=== PATIENT | male | born 1965 | race Caucasian/White ===

== ENCOUNTER 2016-07-30 18:12 | Inpatient (IN) | payer MEDICARE ==
[~2016-07-30] VITALS: Ht 182.9 cm; Wt 104.2 kg
[2016-07-30] VITALS (9 sets, daily range): BP systolic 156–207; BP diastolic 114–151; PULSE 62–85; RESP 15–20; O2SAT 95–99
--- NOTE | 2016-07-30 18:27 | ED.REPORT ---
HPI-Chest Pain 40 and Over Date of Service Jul 30, 2016 ED Provider: Dr. Gt Corrales D.O. A 50 year old male with a history of hypertension presents to the ED with chest pain onset approximately 15:30 today while traveling in a car. His pain is described as "heaviness," with radiation to his left arm. He also reports headache, slurring speech (per his landlord), trouble speaking, and weakness/ numbness in his left arm. The patient took Nitro x2 since onset with little relief. Nursing Notes Stated Complaint: CHEST PAIN/HIGH BLOOD PRESSURE Chief Complaint: Chest Pain Nursing Notes Reviewed: Yes Allergies: Coded Allergies: No Known Allergies (Unverified , 07/30/16) Scheduled Diltiazem ER (Dilt XR) 240 Mg Cap.er.deg 240 MG PO DAILY Scheduled PRN Alprazolam (Alprazolam) 0.5 Mg Tablet 5 MG PO BID PRN PRN For Anxiety Nitroglycerin SL (Nitrostat) 0.4 Mg Tab.subl 0.4 MG SL Q5MIN PRN PRN For Chest Pain General Time Seen by MD: 18:27 Chief Complaint Chest pain Hx Obtained From: Patient Arrived By: Walk-in Sudden in Onset?: Yes Onset Occurred: 1 - 4 hours ago Context of Onset: At rest Symptom Duration: Since onset Location: : Chest left: Chest right Quality: Heaviness Radiation: : Arm left Severity: Current: Moderate Severity: Maximum: Moderate Associated with: Reports: Numbness/Tingling (Left arm), Weakness (Left arm), Denies: Fever Pertinent Negative: Relieved by nothing Context Related History: Reports: Hypertension Recent Healthcare: No recent doctor visit Similar Sx Previous: No Risk Factors NIH Stroke Scale Level of Consciousness: Alert and responsive (0) Ask Month & Age: Both questions right (0) Open/Close Eyes/Hand 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: Performs both tasks (0) Horizontal EO Movements: None (0) Visual Tristan: No visual loss (0) Facial Palsy: Normal symmetry (0) Right Arm Motor Drift (10s): No drift 10 sec (0) Left Arm Motor Drift (10s): Drift, not touch bed (1) Right Leg Motor Drift (5s): No drift 5 sec (0) Left Leg Motor Drift (5s): No drift 5 sec (0) Limb Ataxia FNF/Heel-Barnett: Ataxia in 1 limb (1) Sensation (Arms/Legs/Face): No sensory loss (0) Language Aphasia: No aphasia, normal (0) Dysarthria: No dysarthria, normal (0) Extinction/Inattention: No exctinct/inattent (0) NIHSS Score: 2 Time NIHSS Performed: 18:37 Date NIHSS Performed: Jul 30, 2016 Level of Consciousness: Alert and responsive (0) Ask Month & Age: Both questions right (0) Open/Close Eyes/Hand 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: Performs both tasks (0) Horizontal EO Movements: None (0) Visual Tristan: No visual loss (0) Facial Palsy: Normal symmetry (0) Right Arm Motor Drift (10s): No drift 10 sec (0) Left Arm Motor Drift (10s): No drift 10 sec (0) Right Leg Motor Drift (5s): No drift 5 sec (0) Left Leg Motor Drift (5s): No drift 5 sec (0) Limb Ataxia FNF/Heel-Barnett: No ataxia (0) Sensation (Arms/Legs/Face): No sensory loss (0) Language Aphasia: No aphasia, normal (0) Dysarthria: No dysarthria, normal (0) Extinction/Inattention: No exctinct/inattent (0) NIHSS Score: 0 Time NIHSS Performed: 21:15 Date NIHSS Performed: Jul 30, 2016 Past Medical History Past Medical History Hypertension Past Surgical History Left shoulder Smoking History Never Smoker 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 Physical Exam Physical Exam Notes: Initial Vital Signs Vital Signs (First) Date Time Temp Pulse Resp B/P Pulse Ox O2 Delivery O2 Flow Rate FiO2 07/30/16 18:15 36.4 85 20 207/151 99 Room Air Initial VS: Reviewed Head / Eyes: Atraumatic, Normocephalic ENT: Conjunctiva normal, No scleral icterus Neck: Supple, Full range of motion Skin: Warm, Dry, No cyanosis Psychiatric: Mood/affect normal, Behavior normal, Normal thought content General/Constitutional: Awake, Alert Respiratory / Chest: Breath sounds NL, Breath sounds = bilat, No respiratory distress Cardiovascular: Heart rate NL, Regular rhythm, Heart sounds NL Neurologic: Oriented X3, Speech NL Left-sided arm and leg clumsiness Interpretation & Diagnostics CT ANGIO HEAD AND NECK W/ IV CONTRAST IMPRESSION: 1. No focal stenosis, occlusion, or filling defects within the central intracranial arteries. 2. Right dominant vertebrobasilar system with a diminutive left vertebral artery which appears nonopacified along most of its course. The finding suggests occlusion or high-grade stenosis which may be chronic. 3. The carotid arteries appear widely patent bilaterally. Dictated by: Madhu Garrido M.D. on 07/30/2016 at 21:04 Lab Results Interpretation Result Diagram: 07/31/16 0515 07/31/16 0130 Test 07/30/16 18:42 Hold Purple Top Tube Received (Received) Hold Blue Top Tube Received (Received) Hold [place] Top Tube Received (Received) ECG Interpretation ECG Interpretation: Sinus rhythm rate 79 LVH Prolonged SC interval Abnormal R-wave progression, early transition Some artifact No STEMI Time: 18:29 Interpreted by: ED physician ECG Interpretation: Sinus rhythm rate 60 Prolonged SC interval Left ventricular hypertrophy No serial changes from 07/30/2016 - 18:29:33 Time: 20:56 Interpreted by: ED physician X-Ray Chest Interpretation Chest Xray Interpretation: IMPRESSION: 1. Probable atelectasis in the lung bases. Dictated by: Madhu Garrido M.D. on 07/30/2016 at 19:58 View: Portable, 1 view Interpretation / Wet Read by: Interpret - Radiologist CT Head Interpretation IMPRESSION: 1. No acute intracranial abnormality. 2. Mild chronic white matter small vessel ischemic changes. Dictated by: Madhu Garrido M.D. on 07/30/2016 at 19:17 Study: Head CT no contrast Interpretation / Wet Read by: Interpret - Radiologist CT Chest Interpretation CT ANG CHEST/ABD W/WO CONTRAST: IMPRESSION: 1. No evidence of aortic dissection. 2. Small right middle lobe nodules measuring up to 3 mm. If patient is at high risk for malignancy, a followup CT may be performed in 12 months to demonstrate stability. Dictated by: Madhu Garrido M.D. on 07/30/2016 at 21:14 Interpretation / Wet Read by: Interpret - Radiologist Re-Eval/Medical Decision Med Decision/Clinical Course 50-year-old male presents with chest pain and stroke type symptoms. Evidently about 4-1/2 hours ago his landlord told him that his speech was slurred and he himself felt that his left arm was clumsy. Shortly thereafter he developed some chest pressure. It took him several hours to convince him itself to coming to the hospital. He presents now well out of the three-hour to even for an half hour time frame for thrombolytics. He does have a history of hypertension. He presents severely hypertensive. The chest pain is in his chest and seems to rate to his back. His a phasic speech/dysarthric speech has improved. He still feels a little clumsy with the left arm. No history of stroke or MO. Family history of aortic dissection. On my examination I gave him an NIH stroke scale to 1 presentation. His speech was slightly slurred. His left arm seemed to be clumsy with testing however is a difficult evaluation. The fact that he has a stasis for left shoulder. He was markedly hypertensive. EKG does not show evidence of an acute STEMI. ED scan did not show an acute stroke or hemorrhage. Due to the nature of his symptoms we are aggressive in treating his blood pressure. He received labetalol, IV nitroglycerin and IV opiates for the pain. EKG injury of his chest was negative for dissection. CT angios head and neck was negative for acute anterior circulation occlusion. As his blood pressure came down his stroke symptoms resolved. That was very reassuring. Continued to have ongoing chest pain so therefore I continued to repeat his EKGs. No dynamic changes. Nothing in the EKG that would trigger laborer cheesemaking activation. Troponins remained stable and normal. We will admit him to the CCU with hypertensive emergency. Perhaps a stroke and chest symptoms are related to the hypertensive emergency. Certainly no indications for thrombolytics or endovascular intervention. Time of Eval: 21:15 Patient Status: Condition improved Re-Evaluation/Progress Note: Patient rechecked. His chest pain persists but his other symptoms are resolving. Time of Eval: 21:32 Patient Status: Condition improved Re-Evaluation/Progress Note: Discussed with patient CT, x-ray, and lab results, diagnosis, and plan for admit. Patient agrees with plan for care and all questions were addressed. Consultation : Referral / Consult Name: Erna Altman MD Consulted With: Hospitalist Call Returned at: 22:01 Hog Worker: Agrees with eval, Agrees with plan, Accepts admit Counseled Regarding: Diagnosis, Lab results, Need for admission Discharge & Departure Primary Impression: Chest pain Chest pain type: precordial chest pain Qualified Code: R07.2 - Precordial pain Additional Impressions: TIA (transient ischemic attack) Transient cerebral ischemia type: unspecified Qualified Code: G45.9 - Transient cerebral ischemic attack, unspecified Hypertensive emergency Disposition: ADMITTED TO HOSPITAL Discharge Condition All VS Reviewed: Yes Referrals: NOPCP (PCP) Crit Care Except Billable Proc Time Spent: 30-74 minutes Services Performed: Patient management by me, Time spent at bedside, Reviewing test results, Reviewing imaging, Discussing patient care, Documentation in record Scribe Attestation Portions of this note were transcribed by Shaina Winn. I, Dr. Corrales, personally performed the history, physical exam, and medical decision-making; I reviewed and confirmed the accuracy of the information in the transcribed note. Signed by: Scott Ya, 07/30/2016, 22:24 Gt Corrales DO Jul 30, 2016 18:27 SHAINA WINN Jul 30, 2016 18:41 IMPRESSION: 1. Probable atelectasis in the lung bases. Dictated by: Madhu Garrido M.D. on 07/30/2016 at 19:58 View: Portable, 1 view Interpretation / Wet Read by: Interpret - Radiologist CT Head Interpretation IMPRESSION: 1. No acute intracranial abnormality. 2. Mild chronic white matter small vessel ischemic changes. Dictated by: Madhu Garrido M.D. on 07/30/2016 at 19:17 Study: Head CT no contrast Interpretation / Wet Read by: Interpret - Radiologist CT Chest Interpretation CT ANG CHEST/ABD W/WO CONTRAST: IMPRESSION: 1. No evidence of aortic dissection. 2. Small right middle lobe nodules measuring up to 3 mm. If patient is at high risk for malignancy, a followup CT may be performed in 12 months to demonstrate stability. Dictated by: Madhu Garrido M.D. on 07/30/2016 at 21:14 Interpretation / Wet Read by: Interpret - Radiologist Re-Eval/Medical Decision Time of Eval: 21:15 Patient Status: Condition improved Re-Evaluation/Progress Note: Patient rechecked. His chest pain persists but his other symptoms are resolving. Time of Eval: 21:32 Patient Status: Condition improved Re-Evaluation/Progress Note: Discussed with patient CT, x-ray, and lab results, diagnosis, and plan for admit. Patient agrees with plan for care and all questions were addressed. Consultation : Referral / Consult Name: Erna Altman MD Consulted With: Hospitalist Call Returned at: 22:01 Hog Worker: Agrees with eval, Agrees with plan, Accepts admit Counseled Regarding: Diagnosis, Lab results, Need for admission Discharge & Departure Primary Impression: Chest pain Chest pain type: precordial chest pain Qualified Code: R07.2 - Precordial pain Additional Impressions: TIA (transient ischemic attack) Transient cerebral ischemia type: unspecified Qualified Code: G45.9 - Transient cerebral ischemic attack, unspecified Hypertensive emergency Disposition: ADMITTED TO HOSPITAL Discharge Condition All VS Reviewed: Yes Referrals: NOPCP (PCP) Crit Care Except Billable Proc Time Spent: 30-74 minutes Services Performed: Patient management by me, Time spent at bedside, Reviewing test results, Reviewing imaging, Discussing patient care, Documentation in record Scribe Attestation Portions of this note were transcribed by Shaina Winn. I, Dr. Corrales, personally performed the history, physical exam, and medical decision-making; I reviewed and confirmed the accuracy of the information in the transcribed note. Signed by: Scott Ya, 07/30/2016, 22:24 Gt Corrales DO Jul 30, 2016 18:27 SHAINA WINN Jul 30, 2016 18:41
[2016-07-30] MEDS ORDERED: Nitroglycerin 2% 1 Gm Ointment TOPICAL ONE (18:30)
[2016-07-30] MEDS ORDERED: Labetalol 5 mg/mL 4 mL Inj IVPUSH ONE (18:30)
[2016-07-30] MEDS: fentaNYL-PF 50 mCg/mL 2 mL Inj IVPUSH PRN ×2 (18:49→20:01)
[2016-07-30 19:05] LABS: BASOPHILS % (AUTO) 0.6 % (0-3); EOSINOPHILS % (AUTO) 1.4 % (0-5); MONOCYTES % (AUTO) 6.6 % (4-12); Mean Corpuscular Hemoglobin 31.9 pg (27.0-35.0); Mean Corpuscular Volume 92.9 fL (81-100); NEUTROPHILS % (AUTO) 45.5 % (40-74); Platelet Count 258 bil/L (150-400)
--- NOTE | 2016-07-30 19:18 | DRSVH ---
PROCEDURE: CT BRAIN WITHOUT CONTRAST ([id number]) INDICATIONS: slurred speech TECHNIQUE: Noncontrast 4.5 mm thick angled axial sections acquired from the foramen magnum to the vertex, with c oronal reformats. COMPARISON: [facility], CT, HEAD WITHOUT CONTRAST, 01/04/2015, 11:33. FINDINGS: Image quality: Excellent. CSF spaces: Basal cisterns are patent. No extra-axial fluid collections. Ventricles are normal in size and shape. Brain: No intracranial hemorrhage, mass, or mass effect. Roldan-white matter interface is preserved. There is mild periventricular white matter hypoattenuation redemonstrated consistent with mild chron ic small vessel ischemic changes. Skull and face: Calvarium and visualized facial bones are intact, without suspicious lesions. Sinuses: Visualized sinuses and mastoids are clear. IMPRESSION: 1. No acute intracranial abnormality. 2. Mild chronic white matter small vessel ischemic changes. Dictated by: Madhu Garrido M.D. on 07/30/2016 at 19:17 Approved by: Madhu Garrido M.D. on 07/30/2016 at 19:17
[2016-07-30] MEDS ORDERED: Nitroglycerin 50 mg/250 mL D5W 50,000 MCG in IV Premix 1 EACH IV SCH (19:25)
[2016-07-30 19:30] LABS: Magnesium 1.9 mg/dL (1.6-2.6)
[2016-07-30 19:34] LABS: TROPONIN T < 0.010 ug/L (0.0-0.011)
[2016-07-30] MEDS ORDERED: 0.9% Sodium Chloride 1,000 ML IV ONE (19:40)
--- NOTE | 2016-07-30 19:59 | DRSVH ---
PROCEDURE: X-RAY CHEST ONE VIEW, PORTABLE ([id number]) INDICATIONS: CHEST PAIN TECHNIQUE: One view of the chest was acquired. COMPARISON: [facility], , CHEST 1 VIEW, 01/04/2015, 11:41. FINDINGS: Surgical changes and devices: There is a left shoulder prosthesis redemonstrated. Lungs and pleura: No pleural effusions or pneumothorax. There are a few linear bibasilar opacities likely representing atelectasis. Mediastinum: Mediastinal contours appear normal. Heart size is normal. Bones and chest wall: No suspicious bony lesions. Overlying soft tissues appear unremarkable. IMPRESSION: 1. Probable atelectasis in the lung bases. Dictated by: Madhu Garrido M.D. on 07/30/2016 at 19:58 Approved by: Madhu Garrido M.D. on 07/30/2016 at 19:58
[2016-07-30] MEDS: HYDROmorphone 0.5 mg/0.5 mL iSecure Syringe IVPUSH PRN ×2 (20:53→23:20)
--- NOTE | 2016-07-30 21:05 | DRSVH ---
PROCEDURE: CT ANGIO HEAD AND NECK (P) INDICATIONS: slurred speech, chest pain, hypertensive TECHNIQUE: After the administration of intravenous contrast, 1 mm thick sections acquired from the aortic arch t hrough the [place] of [place]. Post-contrast 4.5 mm thick sections then re-acquired from the foramen m agnum to the vertex. 3-dimensional ffuincs-pmrtcaasw-efdktmokif (MIP) and/or volume rendering reform ats were acquired of the central intracranial vasculature and neck separately. For radiation dose re duction, the following was used: automated exposure control, adjustment of mA and/or kV according to patient size. COMPARISON: [facility], CT, CT BRAIN WO CON, 07/30/2016, 19:01. FINDINGS: Image quality: There is streak artifact from injected contrast limiting evaluation. BRAIN: CSF spaces: Basal cisterns are patent. No extra-axial fluid collections. Ventricles are normal in size and shape. Brain: No intracranial hematomas, mass, or mass effect. Roldan-white matter interface is preserved. Skull and face: Calvarium and facial bones appear intact, without suspicious lesions. Orbits appear normal. Sinuses: Sinuses and mastoids are clear. HEAD CT ANGIOGRAPHY: Anterior circulation: Intracranial internal carotid arteries are normal in size and flow. The flow within the paired anterior cerebral arteries is patent bilaterally. The flow within the middle cereb ral arteries is patent bilaterally. The anterior communicating artery is seen. No aneurysms are see n. Posterior circulation: There is a right dominant vertebral artery which primarily supplies the basil ar artery. There is a diminutive distal left vertebral artery which is minimally opacified. Flow wi thin the posterior cerebral arteries is patent bilaterally. No aneurysms are seen. NECK CT ANGIOGRAPHY: Carotid system: The great vessels demonstrate conventional anatomy as they arise from the aortic arc h. The origins of the common carotid arteries appear patent. The common carotid arteries demonstrat e normal caliber and courses. The bifurcation regions are both widely patent. The internal carotid arteries demonstrate normal calibers and courses. Posterior circulation: There is a right dominant vertebral basilar system. The proximal left vertebr al artery is not well evaluated at its origin due to extensive streak artifact from injected contrast . However, there is a diminutive left vertebral artery which appears non-opacified for most of its c ourse. Distally, there is minimal luminal opacification prior to its fusion with the dominant right vertebral artery. The basilar artery appears widely patent. Soft tissues: Visualized neck soft tissues demonstrate no suspicious abnormalities. Bones: No suspicious bony lesions. Visualized cervical spine appears normally aligned. IMPRESSION: 1. No focal stenosis, occlusion, or filling defects within the central intracranial arteries. 2. Right dominant vertebrobasilar system with a diminutive left vertebral artery which appears nonop acified along most of its course. The finding suggests occlusion or high-grade stenosis which may be chronic. 3. The carotid arteries appear widely patent bilaterally. Dictated by: Madhu Garrido M.D. on 07/30/2016 at 21:04 Approved by: Madhu Garrido M.D. on 07/30/2016 at 21:04
--- NOTE | 2016-07-30 21:16 | DRSVH ---
PROCEDURE: CT ANG CHEST/ABD W/WO CONTRAST ([id number]) INDICATIONS: CHEST PAIN. RULE OUT DISSECTION TECHNIQUE: Precontrast 5 mm thick sections acquired from the lung apices to the iliac crests. After the adminis tration of intravenous contrast, 3 mm thick sections again acquired from the lung apices to the iliac crests. 3-dimensional maximum intensity projection (MIP) oblique sagittal and coronal reformats wer e then acquired, and/or 3-dimensional volume rendering reformats. For radiation dose reduction, the following was used: automated exposure control. COMPARISON: None. FINDINGS: Image quality: Excellent. AORTA: The aorta is normal in caliber and contour. No evidence of intramural hematomas on noncontra st images. Postcontrast images demonstrate no intimal flaps to suggest aortic dissection. There is conventional branching of the aortic arch. The visualized great vessels appear patent. The celiac, superior mesenteric, and inferior mesenteric arteries appear patent. There are single renal arteries bilaterally which appear patent. The visualized proximal common iliac arteries are normal in calibe r and appear patent. CHEST: Lungs and pleura: There is mild dependent atelectasis. There is a small 3 mm pulmonary nodule in the right middle lobe on series 4 image 60. A small 2-3 mm nodule is also demonstrated in the right mid dle lobe on image 67. A few subpleural nodular opacities in the posterior lower lobes are likely rel ated to atelectasis. No pleural effusions or pneumothorax. Central and peripheral airways are paten t and normal in caliber. Mediastinum: Heart size is normal. No pericardial effusion. There is coronary arterial vascular ca lcification. No mediastinal or hilar adenopathy by size criteria. Central pulmonary arteries are no rmal in size. Esophagus is normal in caliber. No hiatal hernias. Bones and chest wall: No axillary adenopathy by size criteria. Thyroid gland demonstrates no discre te nodules. No suspicious bony lesions. No vertebral body compression fractures. ABDOMEN: Solid organs: Liver and spleen are normal in size. Gallbladder appears within normal limits. Bilia ry system is non dilated. Pancreas enhances normally. No adrenal nodules. Both kidneys are normal in size and enhancement, without hydronephrosis. Peritoneum and bowel: No free fluid or air. Visualized bowel loops are normal in caliber and wall t hickness. Nodes and vessels: No retroperitoneal or mesenteric adenopathy by size criteria. Inferior vena cava is normal in morphology. Bones: No suspicious bony lesions. No vertebral body compression fractures. Miscellaneous: No ventral hernias. IMPRESSION: 1. No evidence of aortic dissection. 2. Small right middle lobe nodules measuring up to 3 mm. If patient is at high risk for malignancy, a followup CT may be performed in 12 months to demonstrate stability. Dictated by: Madhu Garrido M.D. on 07/30/2016 at 21:14 Approved by: Madhu Garrido M.D. on 07/30/2016 at 21:14
[2016-07-30] MEDS ORDERED: Alum-Mag Hydrox-Simeth 30 mL Suspension PO PRN (22:35)
[2016-07-30] MEDS ORDERED: Ondansetron 2 mg/mL 2 mL Inj IVPUSH PRN (22:35)
[2016-07-30] MEDS ORDERED: DILT240C45 PO (23:22)
[2016-07-30 23:46] LABS: APPEARANCE,URINE CLEAR (CLEAR,HAZY); COLOR,URINE YELLOW (YELLOW); OCCULT BLOOD,URINE NEGATIVE (NEGATIVE); PH,URINE 5.5 (5.0-8.0); UROBILINOGEN,URINE NORMAL (NORMAL)
[2016-07-31] VITALS (8 sets, daily range): BP systolic 141–159; BP diastolic 77–100; PULSE 53–95; RESP 12–19; O2SAT 92–98
[2016-07-31] MEDS ORDERED: Alum-Mag Hydrox-Simeth 30 mL Suspension PO PRN (00:20)
[2016-07-31] MEDS ORDERED: Senna-Docusate 8.6-50 mg Tablet PO PRN (00:20)
[2016-07-31] MEDS ORDERED: Polyethylene Glycol (PEG) 17 Gm Powder PO PRN (00:20)
[2016-07-31] MEDS ORDERED: HYDROmorphone 0.5 mg/0.5 mL iSecure Syringe IVPUSH PRN (00:20)
--- NOTE | 2016-07-31 00:59 | PCM.HPMED ---
Subjective Date of Service Jul 30, 2016 Primary Provider: Admitting Physician: Erna Altman MD Primary Care Physician: N[place]dim[place] Attending Physician: Erna Altman MD Chief Complaint: Left arm weakness and chest pain History of Present Illness: A 50 year old male with scant medical history of hypertension presents to the ED with 10/10 left sided chest pain/pressure and left arm weakness/numbness that began around 15:30 today while in his car, with SBP > 230 on admit. Pt describes his pain as "heaviness," with radiation down his left arm, with additional weakness and numbness. He also reports headache, slurring speech which is resolving, mild aphasia that has now resolved, and weakness/numbness in his left arm and leg. Endorses blurry vision, pain in back, dizziness, lightheadedness, nausea, and confusion/ams which has now resolved. Denies fever , chills, or vomiting. The patient took Nitro x2 since onset with little relief. In the ED the patient was given labetalol with decreased of SBP from 207 to 181. Pt was then placed on a nitro drip with SBP continuing to drop to 150-170' s. CT scans of chest/abd and brain were obtained and unremarkable, along with CT head and neck with brain perfusion which was negative for acute vascular compromise. Pt's symptoms began remitting on the lowering of his BP with reduced CP with use of nitro drip. His left arm weakness is resolving. Currently patient complains of headache. Review of Systems: A comprehensive review of systems was conducted with the patient and found to be negative except as above in the History of Present Illness. Allergies Coded Allergies: No Known Allergies (Unverified , 07/30/16) Home Medications Diltiazem 240mg daily Ibuprofen 800mg TID for extended period of time PMH Hypertension Surgical History Left shoulder Family History Pt is adopted Social History Hx Alcohol Use: Yes (increased drinking currently due to life stressors) Hx Substance Use: Yes (marijuana) Hx Tobacco Use: Yes Smoking Status: Light Tobacco Smoker (socially, not consistent; does smoke marijuana), Never Smoker Living Arrangement: with Family Exam Vital Signs Vital Sign - Last Date Time Temp Pulse Resp B/P Pulse Ox O2 Delivery O2 Flow Rate FiO2 07/30/16 22:30 65 173/122 07/30/16 19:20 15 95 Room Air 07/30/16 18:15 36.4 Exam Gen: AOx3, conversive; upbeat HEENT: mild slurring of speech that partner states is around baseline and improved from ED: PERRLA, EOMI, hearing intact with mild decrease on left side; Cardio: RRR no m/r/g; Resp: CTA bilaterally with decreased breath sounds but no w/r/c Abd: non-tender; +bs; non-distended; central obesity Ext: no edema noted; no rashes; peripheral IV in bilateral cubital fossa muscu: no chest tenderness to palpation psych: appropriate mood and affect neuro: CN 2-12 grossly intact except as noted; mild slurring of words; oriented now but states he was not when the episode started at 1330 yesterday; no dysmetria; finger to nose intact; [id number] revealed mild myoclonus with left heal on right reza, otherwise normal; sensation intact on right, but decreased on left hand and foot; 5/5 strength on right but 3+/5 on leg leg and 3 or 3-/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 No focal stenosis, occlusion, or filling defects within the central intracranial arteries. 2. Right dominant vertebrobasilar system with a diminutive left vertebral artery which appears nonopacified along most of its course. The finding suggests occlusion or high-grade stenosis which may be chronic. 3. The carotid arteries appear widely patent bilaterally. Dictated by: Madhu Garrido M.D. on 07/30/2016 at 21:[address] 1. No acute intracranial abnormality. 2. Mild chronic white matter small vessel ischemic changes. Dictated by: Madhu Garrido M.D. on 07/30/2016 at 19:17 Chest X-ray 1. Probable atelectasis in the lung bases. Dictated by: Madhu Garrido M.D. on 07/30/2016 at 19:58 Chest/Abdomen CT 1. No evidence of aortic dissection. 2. Small right middle lobe nodules measuring up to 3 mm. If patient is at high risk for malignancy, a followup CT may be performed in 12 months to demonstrate stability. Dictated by: Madhu Garrido M.D. on 07/30/2016 at 21:14 Assessment & Plan Hypertensive Emergency with chest pain, left sided weakness with slurred speech , and ams; present on admission; ongoing - Has significantly uncontrolled BP with outpatient SBP of 170 being low for the patient - Pt presents with severe chest pain that is mild-mod minimally relieved with nitro, and neurological symptoms, with initial SBP > 220 - Pt given Labetalol 20mg IV which brought SBP down 25%; placed on nitro drip for maintenance and for tx of chest pain - Pt admitted to ICU on nitro drip; will switch to nicardipine or enalapril if insufficient (would rather use labetalol but HR in 60's) - Consider starting PO in am - Goal to drop BP another 10% from noon today (07/31) until noon tomorrow; already down 20-25% - Pt on Dilaudid to control contributions of pain on his blood pressure - ECHO in am due to > decade of extreme uncontrolled hypertension and reports of increasing exercise intolerance - Pt BP goal: 180> BP >170 Chest pain second to hypertension; present on admission; ongoing - Likely chest pain is second to hypertension with some resolution after initiation of antihypertensives - Still at 8/10, but negative EKG changes and troponin neg x 2 - Continue nitro drip - Start B-percy in AM but keep within parameters - Trend troponin - Lipid panel pending - Discussed need to control drinking and stop smoking - EKG in am - Pt does complain of headache that is now worse, likely due to nitro; already given Dilaudid in ED; will continue for present with recognition that this may lead to rebound; stop once Nitro stopped Concern for stroke vs TIA second to malignant htn; present on admission; ongoing - Pt states had ams and worsening left arm and leg weakness; appears that at least some of this weakness exists at baseline, but it was significant weakness on exam, improved from ED; NIH on admit 6 - CTA negative for acute embolic or atherosclerotic disease and carotids without identifiable plaque; no bleed - Contrast MR tomorrow; did not do stroke protocol as CTA head and neck completed already - Starting on atorvastatin and asa - Neuro check per nursing Hx of atrial fibrillation; stable - Pt has hx of atrial fibrillation and placed on Diltiazem 240 daily for rate and BP control - Likely patient missed dose today - Pt currently NSR - Considering B-percy for blood pressure control and to replace Diltiazem on discharge Hyperglycemia of unknown chronicity; present on admission - Pt BG 141 on admit - No hx of diabetes; - A1c in AM GERD second to alcohol and extensive NSAID use; resent on admission; ongoing - Pt has had increased alcohol intake recently and using Ibuprofen 800mg Q8 for extended period - Famotidine 20 PO Q12 - Discussed need to control factors Dispo: Pt is being admitted to ICU with expected LOS > 2 midnights due to severity of presentation, complexity of case, and risk for complications Pain Evaluation: Pain not Controlled GI Prophylaxis: H2 percy VTE Prophylaxis: Sub-Q Heparin (Unfractionated) Resuscitation Status: CPR: Attempt Resuscitation Attending Statement Pt seen and examined by myself and agree with above plan. Karan Wong DO Jul 31, 2016 00:58 Erna Altman MD Aug 03, 2016 06:28
[2016-07-31] MEDS: Ondansetron 2 mg/mL 2 mL Inj IVPUSH PRN ×2 (01:09→09:04)
[2016-07-31] MEDS ORDERED: NiCARdipine Inj 25 MG in Dextrose 5% 240 ML IV SCH (01:25)
[2016-07-31] MEDS ORDERED: Furosemide 10 mg/mL 4 mL Inj IVPUSH ONE (02:00)
[2016-07-31 02:19] LABS: TROPONIN T 0.01 ug/L (0.0-0.011)
[2016-07-31] MEDS: NiCARdipine Inj 25 MG in Dextrose 5% 240 ML IV SCH ×5 (02:30→21:45)
[2016-07-31] MEDS ORDERED: LidocaineVisc 2%:Antacid 1:1 120 mL Suspension PO ONE (04:00)
[2016-07-31 05:29] LABS: BASOPHILS % (AUTO) 0.6 % (0-3); EOSINOPHILS % (AUTO) 1.3 % (0-5); MONOCYTES % (AUTO) 8.1 % (4-12); Mean Corpuscular Hemoglobin 31.6 pg (27.0-35.0); Mean Corpuscular Volume 92.1 fL (81-100); NEUTROPHILS % (AUTO) 61.5 % (40-74); Platelet Count 232 bil/L (150-400)
--- NOTE | 2016-07-31 07:29 | NUR ---
CCU admit / Cardiac Pt arrived from ER to CCU # 2018 approx at 2250. BP elevated. Pt C/O CP and ALVAREZ. Pt treated for pain. Nitro titrated up. Pt could not tolerate Nitro gtt. Pt C/O "raging ALVAREZ 04/28". ALVAREZ associated with CP, nausea, diaphoresis, and severe anxiety. Dr. Altman at the bedside to assess pt and reviewed 12 leads and VS. Received new order to D/C Nitro gtt and start Nicardipine gtt per CCU protocol. Drip initiated. BP improved and pt stated I feel much better refer to CP and ALVAREZ. Pt appeared calm and pleasant. Dr. Wong order to held Nicardipine gtt at this time to maintain BP >150 and < 170. No overt complications noted. (please refer to CCU flowsheet, VS, intervention, EMAR for further details)
--- NOTE | 2016-07-31 08:53 | PCM.PNMED ---
Subjective Date of Service Jul 31, 2016 Subjective 50 year man with poorly-controlled hypertension presents with left-sided neurologic complaints and chest pain; found to have hypertensive emergency. Neurologic symptoms have resolved. Her complaint is severe headache since admission, attributed to nitroglycerin. No further chest pain at this time. He does endorse history of stable angina with exertion for which he has a standing prescription of nitroglycerin, which she has taken on 2 or 3 occasions. His current complaints began after a conversation in which her friend raised concerns about slurred speech. The patient checked his blood pressure found it to be very high. He experienced some anxiety along with neuro and chest complaints. Exam Vital Signs Vital Sign - Last Date Time Temp Pulse Resp B/P Pulse Ox O2 Delivery O2 Flow Rate FiO2 07/31/16 08:11 36.7 65 12 144/77 98 Room Air Intake and Output 07/30/16 07/30/16 07/31/16 Cumulative From/Thru 15:00 23:00 07:00 07/30/16 18:15 - 07/31/16 06:45 Intake Total 1000 ml 389 ml 1389 ml Output Total 3375 ml 3375 ml Balance 1000 ml -2986 ml -1986 ml Intake Oral 150 ml 150 ml IV Total 1000 ml 239 ml 1239 ml Output Urine Total 3375 ml 3375 ml Exam General: Healthy-appearing middle-aged man no acute distress HEENT: sclerae anicteric, oral mucosa moist Neck: no JVD Chest: clear to auscultation Cardiac: S1S2, no murmur Abdomen: BS normal, non-tender Extremities: No edema, pulses intact Neuro: A&O, cranial nerves symmetric, motor strength 5/5, coordination normal, reflexes 2+ and symmetric, toes downgoing IVs and Medications Medications Reviewed: Medications were reviewed in detail Lab and Diagnostics Result Diagram: 07/31/16 0515 07/31/16 0130 X-Rays, CTs and MRIs Head and Neck CTA 1. No focal stenosis, occlusion, or filling defects within the central intracranial arteries. 2. Right dominant vertebrobasilar system with a diminutive left vertebral artery which appears nonopacified along most of its course. The finding suggests occlusion or high-grade stenosis which may be chronic. 3. The carotid arteries appear widely patent bilaterally. Dictated by: Madhu Garrido M.D. on 07/30/2016 at 21:[address] 1. No acute intracranial abnormality. 2. Mild chronic white matter small vessel ischemic changes. Dictated by: Madhu Garrido M.D. on 07/30/2016 at 19:17 Chest X-ray 1. Probable atelectasis in the lung bases. Dictated by: Madhu Garrido M.D. on 07/30/2016 at 19:58 Chest/Abdomen CT 1. No evidence of aortic dissection. 2. Small right middle lobe nodules measuring up to 3 mm. If patient is at high risk for malignancy, a followup CT may be performed in 12 months to demonstrate stability. Dictated by: Madhu Garrido M.D. on 07/30/2016 at 21:14 Assessment & Plan # Hypertensive Emergency with chest pain, left sided weakness with slurred speech, and ams; present on admission.. Pt given Labetalol 20mg IV which brought SBP down 25%; placed on nitro drip for maintenance and for tx of chest pain. Pt admitted to ICU,, nicardipine or enalapril as needed. - Resume diltiazem ER today and taper off nicardipine for SBP less than 160. - Goal to drop BP another 10% from noon today (07/31) until noon tomorrow; already down 20-25% - Goal is to transition to by mouth meds with systolic blood pressure 160-180 today # Chest pain second to hypertension; present on admission; resolved. Likely chest pain is second to hypertension with some resolution after initiation of antihypertensives. Troponins negative. EKG negative. - We will consider switch to beta percy, but patient has had intolerance to several antihypertensives meds in the past. - No further ischemic workup at this time. #Concern for stroke vs TIA second to malignant htn; present on admission; resolved. Pt states had ams and worsening left arm and leg weakness; appears that at least some of this weakness exists at baseline, but it was significant weakness on exam at time of admission. Neuro exam is normal within 24 hours. CTA negative for acute embolic or atherosclerotic disease and carotids without identifiable plaque; no bleed. - Contrast MR tomorrow; did not do stroke protocol as CTA head and neck completed already - Starting on atorvastatin and asa - Neuro check per nursing # Hx of atrial fibrillation; stable. Pt has hx of atrial fibrillation and placed on Diltiazem 240 daily for rate and BP control. Pt currently NSR -Resume diltiazem # Hyperglycemia of unknown chronicity; present on admission - Pt BG 141 on admit - No hx of diabetes; - A1c in AM # GERD second to alcohol and extensive NSAID use; resent on admission; ongoing - Pt has had increased alcohol intake recently and using Ibuprofen 800mg Q8 for extended period - Famotidine 20 PO Q12 - Discussed need to control factors Dispo: Pt is being admitted to ICU with expected discharge on 08/01. Okay to transfer out of CCU when nicardipine drip is discontinued. GI Prophylaxis: H2 percy VTE Prophylaxis: Sub-Q Heparin (Unfractionated) Resuscitation Status: CPR: Attempt Resuscitation Time spent 35 minutes Guzman Ford MD Jul 31, 2016 08:53
[2016-07-31] MEDS ORDERED: HYDROmorphone 0.5 mg/0.5 mL iSecure Syringe IVPUSH ONE (09:30)
--- NOTE | 2016-07-31 09:45 | NUR ---
Evaluation completed. Please go to "Notes" then click on "Assessments and Notes" (bottom left corner of screen). Then select appropriate discipline tab on top of screen.
[2016-07-31] MEDS: Diltiazem CD 240 mg ER24 Capsule PO SCH (10:03)
[2016-07-31] MEDS: Heparin 5,000 Unit/mL Inj SUBQ SCH ×2 (10:05→17:24)
--- NOTE | 2016-07-31 10:26 | DRSVH ---
[facility] [address] [place] [address] Echocardiogram Report Name: LASHONDA NUNEZ SStudy Date: 07/31/2016 Height: 72 in Hospital Exam Location: [facility] Weight: 234 lb Gender: Male BSA: 2.3 m2 : 1965 Age: 50 yrs BP: 159/91 mmHg Reason For Study: Ordering Physician: Performed By: Roberta Jerome Interpretation Summary 1. Normal left ventricular size with mild to moderately increased wall thickness and normal systolic function with an estimated EF of 60% 2. Upper limits of normal right ventricular size with normal systolic function. 3. No valvular pathology appreciated. 4. The ascending aorta is dilated at 4.1 cm Procedure: A two-dimensional transthoracic echocardiogram with color flow and Doppler was performed. The study quality was technically adequate. There is no prior echocardiogram noted for this patient. The patient was in a bradycardic rhythm during the exam. Left Ventricle: The left ventricle is normal in size. Left ventricular wall thickness is mild-moderately increased. Left ventricular systolic function is normal. Left ventricular ejection fraction is estimated to be 60%. Spectral Doppler of the mitral valve is reversed, with an E/A wave ratio < 1.0. Right Ventricle: The right ventricle is borderline dilated. The right ventricular systolic function is normal. Atria: The left atrium is mildly dilated. Right atrial size is normal. No color doppler evidence for an ASD. Mitral Valve: The mitral valve is normal in structure and function. There is no mitral regurgitation noted. Aortic Valve: The aortic valve is trileaflet. The aortic valve opens well. No aortic regurgitation is present. Tricuspid Valve: The tricuspid valve leaflets are thin and pliable. There is a trace or physiologic amount of tricuspid regurgitation. The right ventricular systolic pressure is estimated at 23 mmHg assuming a right atrial pressure of 3 mm Hg. Pulmonic Valve: The pulmonic valve leaflets are thin and pliable; valve motion is normal. There is no pulmonic valvular regurgitation. Great Vessels: The aortic root is mildly dilated. The ascending aorta is mildly enlarged. The ascending aorta measures 4.1 cm. The pulmonary artery is normal size. The IVC is of normal diameter and collapses greater than 50% with a sniff. This suggests a low right atrial pressure of 3 mm Hg. Pericardium/ Pleura There is no pericardial effusion. There is no pleural effusion. MMode/2D Measurements & Calculations LVIDd: 5.5 cm LA dimension: 5.0 cm RA long axis LVOT diam: 2.6 cm LVIDs: 3.1 cm AoV Openin.4 cm FS: 43.8 % LA A2 area: 25.1 cm RA area Ao root diam: 4.0 cm EPSS: 0.98 cm LA A4 area: 25.3 cm asc Aorta Diam IVSd: 1.5 cm LA length (vol) : 20.2 cm LVPWd: 1.3 cm RA vol Ao Arch Diam LA vol: 89.9 ml : 57.7 ml (Proximal trans.) LA vol index RA : 25.4 mm/ RVDd major IVC diam: 1.4 cm : 6.6 cm LV rivera. diameter/BSALV sys. diameter/BSA RVD2 (mid) (cm/m^2): 2.4 (cm/m^2): 1.4 : 3.6 cm Doppler Measurements & Calculations Ao V2 max: 162.5 cm/sec MV E max arnie MV E/A: 0.86 TR max arnie Ao max P.6 mmHg : 66.6 cm/sec MV A dur : 218.0 cm/sec Ao mean P.2 mmHg MV A max arnie : 0.15 sec TR max PG LVOT Max Arnie : 77.9 cm/sec : 20.0 mmHg : 107.3 cm/sec MV P1/2t PA V2 max BRIAN(I,D): 3.6 cm : 87.5 msec : 103.5 cm/sec sev ratio: 0.69 PA mean PG PA Accel Time : 0.10 sec MV P1/2t max arnie Ao V2 mean LV V1 max PG PA V2 mean : 109.2 cm/sec : 72.1 cm/sec MVA(P1/2t): 2.5 cm2 Ao V2 VTI: 33.9 cm LV V1 VTI BRIAN(V,D): 3.4 cm2 : 23.3 cm BRIAN indexed to BSA (cm^2/m^2): 1.6 Reading Physician:10:25 AM
--- NOTE | 2016-07-31 14:16 | DRSVH ---
PROCEDURE: MRI BRAIN WITHOUT CONTRAST ([id number]) INDICATIONS: left sided weakness TECHNIQUE: Noncontrast axial T1 spin echo, axial T2 fast spin echo, sagittal and axial FLAIR, coronal T2 fast sp in echo, axial gradient echo, axial diffusion and ADC through the brain. COMPARISON: [facility], CT, CT BRAIN WO CON, 07/30/2016, 19:01. FINDINGS: Image quality: Excellent. CSF Spaces: Basal cisterns are patent. No extra-axial fluid collections. Ventricles are normal in size and shape. Brain: No intracranial masses or hemorrhage. There is mild diffuse cerebral volume loss. There is a mild degree of patchy high FLAIR signal within the periventricular and subcortical white matter, most consistent with small vessel ischemic disease. Roldan/white matter interface is normal. Brainstem dominik ears normal. Diffusion-weighted images demonstrate no acute ischemic insult. No chronic ischemic in sults. Normal intravascular flow voids are present. Skull and face: Calvarium has normal marrow signal. Orbits appear normal. Sinuses: Mild bilateral ethmoid air cell mucosal thickening is present. Sinuses and mastoids are othe rwise clear. IMPRESSION: 1. No acute intracanal abnormality. No recent infarct. 2. Mild volume loss and small vessel ischemic disease. Dictated by: Chun Jarvis M.D. on 07/31/2016 at 14:14 Approved by: Chun Jarvis M.D. on 07/31/2016 at 14:14
--- NOTE | 2016-07-31 15:26 | NUR ---
Cardiac/neuro/pain SR/SB with inverted t-waves per compliance monitor. Hypertensive, but remains within set parameters at this time. Chest pressure unchanged throughout shift, patient continues to rate 5/10. Denies SOA. Right frontal ALVAREZ persists; however, pain improved from start of shift. Patient reporting "heaviness" and "weakness" in left upper and lower extremities. Full strength noted in upper extremities. Pt able to hold left leg up to 5 seconds, but then it drifts and falls to bed. Additional reports of decreased sensation in left arm. Speech clear and organized. Dr Ford contacted and updated on pt status, no new orders at this time. Will continue to monitor.
[2016-07-31] MEDS ORDERED: NITR0.4T SL (17:38)
[2016-07-31] MEDS ORDERED: ALPR0.5T8 PO (17:38)
--- NOTE | 2016-07-31 17:43 | NUR ---
Med rec. Pt. became agitated when asked about hx of taking Viagra, states doctors do not need to know about his hx of taking this and asks me to leave the room. Pt. also has documented hx of taking nitroglycerin. I left the room as asked and have reported this issue to primary RN Grazyna. Addendum: 07/31/16 at 1928 by FLORINDA BARNARD RN After introducing myself as admit nurse and my purpose of reconciling pt. home meds I began reviewing pt. home meds with him. There was a female visitor in the room during this interaction. Pt. affirmed several medications I reviewed from pharmacy history in external med. history. After I mentioned cialis and viagra pt. became angry, saying the doctors don't need to know that he takes that and that "she" does not need to know either. I apologized to pt. for asking about this personal medication in front of her. Visitor walked to the doorway and asked pt. to "calm down, I already knew anyway, they've been talking about your history and physical the whole time I've been here." Visitor left and I apologized again. Pt. was angry, berating me for unprofessionalism. "I don't have anything more to say to you." I explained my concern that the doctors know all the medications he takes including both nitroglycerin and viagra, for the safety of his heart but pt. again stated "the doctors don't need to know." I did not enter Viagra in home med list per pt. stated preference. I then left pt.'s room.
[2016-08-01 00:11] VITALS: BP 157/96; PULSE 59; RESP 19; O2SAT 96
[2016-08-01] MEDS: Heparin 5,000 Unit/mL Inj SUBQ SCH ×2 (00:14→08:30)
[2016-08-01] MEDS: NiCARdipine Inj 25 MG in Dextrose 5% 240 ML IV SCH ×2 (02:45→07:45)
[2016-08-01 03:11] VITALS: BP 149/85; PULSE 60; RESP 16; O2SAT 95
[2016-08-01 05:19] VITALS: PULSE 47
--- NOTE | 2016-08-01 06:14 | NUR ---
sleep pt requesting medications to help him sleep, very anxious about sleeping. gave 1mg IV ativan, 1.5 hours later pt called c/o he is still unable to sleep, called received order for 5mg PO ambien, a few hours later pt still c/o of no sleep, gave another dose of 1mg IV ativan, pt able to fall asleep. BP stable,
[2016-08-01 08:00] VITALS: PULSE 51
[2016-08-01 08:42] VITALS: BP 126/85; PULSE 50; RESP 18; O2SAT 96
[2016-08-01] MEDS: Diltiazem CD 240 mg ER24 Capsule PO SCH (08:48)
[2016-08-01] MEDS ORDERED: ASPI-973 PO (09:05)
[2016-08-01] MEDS ORDERED: NAPR250T PO (09:05)
[2016-08-01] MEDS ORDERED: LISI-610 PO (09:05)
[2016-08-01] MEDS ORDERED: ATOR40TA69 PO (09:05)
--- NOTE | 2016-08-01 09:10 | PCM.DIMED ---
Discharge Instructions Date of Service Aug 01, 2016 Dates of Hospitalization Jul 30, 2016 at 22:02 Discharge Diagnosis Discharge Diagnosis Hypertensive emergency; TIA symptoms; noncardiac chest pain; anxiety Test Results Total cholesterol 176, LDL cholesterol 89, HDL cholesterol 55 Hemoglobin A1c 5.2% Diet Other (low sodium otherwise normal diet) Activity No restrictions Patient Instructions You should take low-dose aspirin once a day. He may continue your current over- the-counter aspirin preparation or make use of the prescription for low-dose baby aspirin has been provided. You should try to minimize the use of pain medications for your chronic musculoskeletal complaints. These medications increase your risk for heart attack and stroke. Naproxen is probably the safest drug in this class from a heart health perspective. All medications like status post risk of ulcer. You should be aware of tarry black colored stools or maroon-colored stools as a sign of GI bleeding and go to the emergency department if you observe these. Patient attention to any recurrence of your left-sided weakness or chest pain symptoms. He should report the pattern of these symptoms to her primary care doctor who may consider further workup. Follow-up plan Contact your primary care provider for a post-hospitalization follow-up appointment with blood pressure check within 1 week. Guzman Ford MD Aug 01, 2016 09:10
--- NOTE | 2016-08-01 09:45 | NUR ---
[facility] Signed 855AM
--- NOTE | 2016-08-01 11:46 | NUR ---
Discharge PT discharged at 1100 [address] private car. IV x2 removed along with tele. All questions answered, prescriptions sent to preferred pharmacy, along with new medication information given. Home belongings taken home along with chargers.
--- NOTE | 2016-08-01 18:45 | PCM.DC.MED ---
Discharge Summary Date of Service Aug 01, 2016 Dates of Hospitalization Date of Hospital Admission Jul 30, 2016 at 22:02 Date of Discharge: Aug 01, 2016 Providers: Admitting Physician: Erna Altman MD Primary Care Physician: Javier Attending Physician: Erna Altman MD Diagnosis at Time of Discharge Diagnosis at Time of Discharge Hypertensive emergency; TIA symptoms; noncardiac chest pain; anxiety Procedures XRay, CTs & MRIs Head and Neck CTA 1. No focal stenosis, occlusion, or filling defects within the central intracranial arteries. 2. Right dominant vertebrobasilar system with a diminutive left vertebral artery which appears nonopacified along most of its course. The finding suggests occlusion or high-grade stenosis which may be chronic. 3. The carotid arteries appear widely patent bilaterally. Dictated by: Madhu Garrido M.D. on 07/30/2016 at 21:[address] 1. No acute intracranial abnormality. 2. Mild chronic white matter small vessel ischemic changes. Dictated by: Madhu Garrido M.D. on 07/30/2016 at 19:17 Chest X-ray 1. Probable atelectasis in the lung bases. Dictated by: Madhu Garrido M.D. on 07/30/2016 at 19:58 Chest/Abdomen CT 1. No evidence of aortic dissection. 2. Small right middle lobe nodules measuring up to 3 mm. If patient is at high risk for malignancy, a followup CT may be performed in 12 months to demonstrate stability. Dictated by: Madhu Garrido M.D. on 07/30/2016 at 21:14 PROCEDURE: MRI BRAIN WITHOUT CONTRAST ([id number]) IMPRESSION: 1. No acute intracanal abnormality. No recent infarct. 2. Mild volume loss and small vessel ischemic disease. Dictated by: Chun Jarvis M.D. on 07/31/2016 at 14:14 Cardiac Echo Impression Echocardiogram Report Name: LASHONDA NUNEZ SStudy Date: 07/31/2016 Height: 72 in Hospital Exam Location: [facility] Weight: 234 lb Gender: Male BSA: 2.3 m2 : 1965 Age: 50 yrs BP: 159/91 mmHg Reason For Study: Ordering Physician: Performed By: Roberta Jerome Interpretation Summary 1. Normal left ventricular size with mild to moderately increased wall thickness and normal systolic function with an estimated EF of 60% 2. Upper limits of normal right ventricular size with normal systolic function. 3. No valvular pathology appreciated. 4. The ascending aorta is dilated at 4.1 cm . Brief History A 50 year old male with scant medical history of hypertension presents to the ED with 10/10 left sided chest pain/pressure and left arm weakness/numbness that began around 15:30 today while in his car, with SBP > 230 on admit. Pt describes his pain as "heaviness," with radiation down his left arm, with additional weakness and numbness. He also reports headache, slurring speech which is resolving, mild aphasia that has now resolved, and weakness/numbness in his left arm and leg. Endorses blurry vision, pain in back, dizziness, lightheadedness, nausea, and confusion/ams which has now resolved. Denies fever , chills, or vomiting. The patient took Nitro x2 since onset with little relief. In the ED the patient was given labetalol with decreased of SBP from 207 to 181. Pt was then placed on a nitro drip with SBP continuing to drop to 150-170' s. CT scans of chest/abd and brain were obtained and unremarkable, along with CT head and neck with brain perfusion which was negative for acute vascular compromise. Pt's symptoms began remitting on the lowering of his BP with reduced CP with use of nitro drip. His left arm weakness is resolving. Currently patient complains of headache. Hospital Course # Hypertensive Emergency with chest pain, left sided weakness with slurred speech, and ams; present on admission.. Pt initially given Labetalol 20mg IV which brought SBP down 25%; placed on nitro drip for maintenance and for tx of chest pain. Pt admitted to ICU,, nicardipine or enalapril as needed. Over 48 hours blood pressure declined to approximately 130/80. - Resume diltiazem ER 240 mg - Add lisinopril 20 mg daily # Chest pain second to hypertension; present on admission; resolved. Likely chest pain is second to hypertension with some resolution after initiation of antihypertensives. Troponins negative. EKG negative. - No further ischemic workup at this time. #Concern for stroke vs TIA second to malignant htn; present on admission; resolved. Pt states had ams and worsening left arm and leg weakness; appears that at least some of this weakness exists at baseline, but it was significant weakness on exam at time of admission. Neuro exam is normal within 24 hours. CTA negative for acute embolic or atherosclerotic disease and carotids without identifiable plaque; no bleed. MRI and angiogram were negative - Low-dose aspirin - Medium dose statin # Hx of atrial fibrillation; stable. Pt has hx of atrial fibrillation and placed on Diltiazem 240 daily for rate and BP control. Pt remained in NSR on telemetry throughout. -Resume outpatient diltiazem # Hyperglycemia of unknown chronicity; present on admission - Pt BG 141 on admit -Hemoglobin A1c was 5.2% # GERD second to alcohol and extensive NSAID use; resent on admission; ongoing - Pt has had increased alcohol intake recently and using Ibuprofen 800mg Q8 for extended period - Counseled to reduce alcohol intake # Chronic musculoskeletal pain. Patient gives history of high-dose nonsteroidal analgesic use. - Recommend to switch to naproxen and to minimize dose if possible. . Exam Vital Signs (Last) Date Time Temp Pulse Resp B/P Pulse Ox O2 Delivery O2 Flow Rate FiO2 08/01/16 08:42 36.9 50 18 126/85 96 Room Air Exam General: Healthy-appearing middle-aged man no acute distress HEENT: sclerae anicteric, oral mucosa moist Neck: no JVD Chest: clear to auscultation Cardiac: S1S2, no murmur Abdomen: BS normal, non-tender Extremities: No edema, pulses intact Neuro: A&O, cranial nerves symmetric, motor strength 5/5, coordination normal, Test 07/30/16 18:42 07/30/16 22:42 07/31/16 01:30 07/31/16 05:15 Hold Purple Top Tube Received (Received) Hold Blue Top Tube Received (Received) Hold Nettie Top Tube Received (Received) Urine Color Yellow (YELLOW) Urine Appearance Clear (CLEAR,HAZY) Urine pH 5.5 (5.0-8.0) Urine Specific [place] 1.020 (1.003-1.035) Urine Protein Negativemg/dL (NEG,TRACE) Urine Glucose (UA) Negativemg/dL (NEGATIVE) Urine Ketones Negativemg/dL (NEGATIVE) Urine Occult Blood Negative (NEGATIVE) Urine Nitrite Negative (NEGATIVE) Urine Bilirubin Negative (NEGATIVE) Urine Urobilinogen Normalmg/dL (NORMAL) Urine Leukocyte Esterase Negative (NEGATIVE) Urine RBC 0-2/hpf (0-2) Urine WBC 0-5/hpf (0-5) Urine Epithelial Cells Occasional/hpf (NONE-MOD) Urine Crystals None seen (NONE SEEN) Urine Bacteria None/hpf (NONE-FEW) Urine Hyaline Casts None/lpf (NONE) Urine Granular Casts None seen (NONE SEEN) Urine Waxy Casts None seen (NONE SEEN) Urine Red Blood Cell Casts None seen (NONE SEEN) Urine White Blood Cell Casts None seen (NONE SEEN) Urine Mucus None seen (None Seen) Urine Trichomonas None seen (NONE SEEN) Urine Yeast None (NONE SEEN) Urine Culture Reflexed Not indicated Sodium Level 141mEq/L (134-144) Potassium Level 4.0mEq/L (3.5-5.2) Chloride Level 102mEq/L (97-108) Carbon Dioxide Level 25mmol/L (18-29) Blood Urea Nitrogen 21mg/dL (6-24) Creatinine 0.78mg/dL (0.76-1.27) Estimat Glomerular Filtration Rate 111mL/min (>59) Glucose Level 103mg/dL (60-99) Calcium Level 8.8mg/dL (8.5-10.1) Magnesium Level 2.0mg/dL (1.6-2.6) Total Bilirubin 0.2mg/dL (0.0-1.2) Aspartate Amino Transf (AST/SGOT) 41U/L (0-50) Alanine Aminotransferase (ALT/SGPT) 63U/L (0-44) Alkaline Phosphatase 66U/L (25-150) Troponin T 0.010ug/L (0.0-0.011) Total Protein 6.5g/dL (6.4-8.4) Albumin 3.9g/dL (3.4-5.0) Prealbumin 32mg/dL (20-40) Triglycerides Level 162mg/dL (0-149) Cholesterol Level 176mg/dL (100-199) LDL Cholesterol, Calculated 88.600mg/dL (0-99) VLDL Cholesterol 32.400mg/dL HDL Cholesterol 55mg/dL (>39) Cholesterol/HDL Ratio 3.20 (0.0-4.4) White Blood Count 7.1th/mm3 (3.8-10.1) Red Blood Count 4.30mil/mm3 (4.40-5.80) Hemoglobin 13.6g/dL (13.8-17.2) Hematocrit 39.6% (41.0-50.0) Mean Corpuscular Volume 92.1fL (81-100) Mean Corpuscular Hemoglobin 31.6pg (27.0-35.0) Mean Corpuscular Hemoglobin Concent 34.3% (32.0-37.0) Red Cell Distribution Width 12.9% (12.3-15.4) Platelet Count 232bil/L (150-400) Neutrophils (%) (Auto) 61.5% (40-74) Lymphocytes (%) (Auto) 28.1% (14-46) Monocytes (%) (Auto) 8.1% (4-12) Eosinophils (%) (Auto) 1.3% (0-5) Basophils (%) (Auto) 0.6% (0-3) Hemoglobin A1c 5.2% (4.8-5.6) Lactic Acid Level 1.2mmol/L (0.4-2.0) Discharge Medications Discharge Medications Aspirin (Aspirin) 81 Mg Tablet 81 MG PO DAILY Prescribed by: VITA LOAIZA MD Atorvastatin Calcium (Atorvastatin Calcium) 40 Mg Tablet 40 MG PO HS Prescribed by: VITA LOAIZA MD Diltiazem ER (Dilt XR) 240 Mg Cap.er.deg 240 MG PO DAILY (Reported) Lisinopril (Zestril) 10 Mg Tablet 20 MG PO DAILY Prescribed by: VITA LOAIZA MD As needed Alprazolam (Alprazolam) 0.5 Mg Tablet 5 MG PO BID PRN PRN For Anxiety (Reported ) Naproxen (Naproxen) 250 Mg Tablet 500 MG PO BIDWM PRN PRN For Pain Prescribed by: VITA LOAIZA MD Nitroglycerin SL (Nitrostat) 0.4 Mg Tab.subl 0.4 MG SL Q5MIN PRN PRN For Chest Pain (Reported) Followup Plan Follow-up plan Contact your primary care provider for a post-hospitalization follow-up appointment with blood pressure check within 1 week. Discharge Diet: Other (low sodium otherwise normal diet) Discharge Activity: No restrictions Patient Instructions You should take low-dose aspirin once a day. He may continue your current over- the-counter aspirin preparation or make use of the prescription for low-dose baby aspirin has been provided. You should try to minimize the use of pain medications for your chronic musculoskeletal complaints. These medications increase your risk for heart attack and stroke. Naproxen is probably the safest drug in this class from a heart health perspective. All medications like status post risk of ulcer. You should be aware of tarry black colored stools or maroon-colored stools as a sign of GI bleeding and go to the emergency department if you observe these. Patient attention to any recurrence of your left-sided weakness or chest pain symptoms. He should report the pattern of these symptoms to her primary care doctor who may consider further workup. Time spent 35 minutes Vita Loaiza MD Aug 01, 2016 09:12
== END 2016-08-01 10:57 | disposition home or self-care (01) | DRG 305 ==
LOC: SED 18:12 → CCU 22:02 → PCC 07-31 10:34
PROVIDERS: ADMIT Specialist; ATTEND Specialist
DX: I16.1 Hypertensive emergency (principal); I48.91 Unspecified atrial fibrillation; R47.81 Slurred speech; R53.1 Weakness; T39.395A Adverse effect of other nonsteroidal anti-inflammatory drugs [NSAID], initial encounter; K21.9 Gastro-esophageal reflux disease without esophagitis; R73.9 Hyperglycemia, unspecified

== ENCOUNTER 2016-10-13 12:04 | Emergency (ER) | payer MEDICARE ==
[~2016-10-13] VITALS: Ht 182.9 cm; Wt 111.4 kg
[~2016-10-13 12:04] MED LIST: ALPR0.5T8 PO; ASPI-973 PO; ATOR40TA69 PO; DILT240C45 PO; LISI-610 PO; NAPR250T PO; NITR0.4T SL
[2016-10-13 12:05] VITALS: BP 201/138; PULSE 82; RESP 15; O2SAT 95
--- NOTE | 2016-10-13 12:18 | ED.REPORT ---
HPI-Chest Pain 40 and Over Date of Service Oct 13, 2016 ED Provider: Calderon Cristobal MD Patient is a 50 year old male with a recent TIA who presents to the ED complaining of a heavy chest pressure onset 40 min prior to arrival while sitting down, relaxing. Associated symptoms include pleuritic pain and left sided finger tingling. He denies headache, blurred vision, diaphoresis, extremity pain, nausea, vomiting, edema, or any other symptoms. His symptoms are similar to previous symptoms. 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 He took his regular medications at 0600 this morning. Nursing Notes Stated Complaint: CHEST PAIN Chief Complaint: Chest Pain Nursing Notes Reviewed: Yes ([employer], [facility] not reconicled) Allergies: Coded Allergies: No Known Allergies (Unverified , 07/30/16) Scheduled Aspirin (Aspirin) 81 Mg Tablet 81 MG PO DAILY Atorvastatin Calcium (Atorvastatin Calcium) 40 Mg Tablet 40 MG PO HS Diltiazem ER (Dilt XR) 240 Mg Cap.er.deg 240 MG PO DAILY Lisinopril (Zestril) 10 Mg Tablet 20 MG PO DAILY Scheduled PRN Alprazolam (Alprazolam) 0.5 Mg Tablet 5 MG PO BID PRN PRN For Anxiety Naproxen (Naproxen) 250 Mg Tablet 500 MG PO BIDWM PRN PRN For Pain Nitroglycerin SL (Nitrostat) 0.4 Mg Tab.subl 0.4 MG SL Q5MIN PRN PRN For Chest Pain General Time Seen by MD: 12:15 Chief Complaint Chest pressure Hx Obtained From: Patient Arrived By: Walk-in Sudden in Onset?: Yes Onset Occurred: 31 - 45 minutes ago Symptom Duration: Since onset Similar Sx Previous: Yes Risk Factors )( CAD Risk Stratification Hypertension SmokingNo Cocaine, No Diabetes mellitus, No Hyperlipidemia, No Known CAD Risk factors reviewed )( TAD Risk Stratification HypertensionNo Marfan's syndrome, No Risk factors reviewed )( PE Risk Stratification No , No Previous DVT, No Previous PE Risk factors reviewed Past Medical History Past Medical History Notes: Admit 07/2016 for hypertensive emergency: Hypertension, developed TIA symptoms and noncardiac chest pains extensive workup-brain CT, chest x-ray, chest abdomen CT negative, including negative for dissection, MRI brain negative, cardiac echo if 60% normal left ventricular size with mild to moderate increased wall thickness consistent with hypertension and patient discharged on diltiazem extended release 240 mg daily plus lisinopril 20 mg daily Past Medical History Hypertension Past Surgical History Left shoulder Bilat knee Smoking History Current Some Day Smoker, Light Tobacco Smoker Social History Increased alcohol use Drug Use: THC 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 Eyes: Denies: Blurred bilateral Physical Exam Initial Vital Signs Vital Signs (First) Date Time Temp Pulse Resp B/P Pulse Ox O2 Delivery O2 Flow Rate FiO2 10/13/16 12:05 82 15 201/138 95 Room Air 10/13/16 12:19 36.8 Initial VS: Reviewed, Unavailable (no temp, ordered), Vital signs abnormal (HTN , no temp) Head / Eyes: Atraumatic, Normocephalic Neck: Full range of motion Skin: Warm, Dry Neurologic: Alert, Oriented, Nonfocal Psychiatric: Mood/affect normal, Behavior normal, Normal thought content General/Constitutional: Awake, Alert, Well developed Respiratory / Chest: Breath sounds NL, Breath sounds = bilat, No respiratory distress Cardiovascular: Heart rate NL, Regular rhythm, Heart sounds NL Abdomen: Soft, Non-tender Interpretation & Diagnostics Lab Results Interpretation Result Diagram: 10/13/16 1217 10/13/16 1217 Test 10/13/16 12:17 White Blood Count 5.1th/mm3 (3.8-10.1) Red Blood Count 4.60mil/mm3 (4.40-5.80) Hemoglobin 14.3g/dL (13.8-17.2) Hematocrit 42.7% (41.0-50.0) Mean Corpuscular Volume 92.8fL (81-100) Mean Corpuscular Hemoglobin 31.1pg (27.0-35.0) Mean Corpuscular Hemoglobin Concent 33.5% (32.0-37.0) Red Cell Distribution Width 13.2% (12.3-15.4) Platelet Count 266bil/L (150-400) Neutrophils (%) (Auto) 45.6% (40-74) Lymphocytes (%) (Auto) 40.5% (14-46) Monocytes (%) (Auto) 11.7% (4-12) Eosinophils (%) (Auto) 1.6% (0-5) Basophils (%) (Auto) 0.4% (0-3) Sodium Level 139mEq/L (134-144) Potassium Level 4.0mEq/L (3.5-5.2) Chloride Level 100mEq/L (97-108) Carbon Dioxide Level 24mmol/L (18-29) Blood Urea Nitrogen 14mg/dL (6-24) Creatinine 0.77mg/dL (0.76-1.27) Estimat Glomerular Filtration Rate 113mL/min (>59) Glucose Level 101mg/dL (60-99) Calcium Level 9.8mg/dL (8.5-10.1) Magnesium Level 2.1mg/dL (1.6-2.6) Total Bilirubin 0.4mg/dL (0.0-1.2) Aspartate Amino Transf (AST/SGOT) 46U/L (0-50) Alanine Aminotransferase (ALT/SGPT) 64U/L (0-44) Alkaline Phosphatase 70U/L (25-150) Troponin T 0.010ug/L (0.0-0.011) Total Protein 7.7g/dL (6.4-8.4) Albumin 4.3g/dL (3.4-5.0) Lab Results Interpretation: CBC is normal & CMP normal troponin negative ECG Interpretation ECG Interpretation: Sinus rate 66 Borderline prolonged ID interval incomplete RBBB Left ventricular hypertrophy Time: 12:15 Interpreted by: ED physician X-Ray Chest Interpretation Chest Xray Interpretation: IMPRESSION: No acute pulmonary process. Dictated by: Anna Randhawa M.D. on 10/13/2016 at 12:29 Approved by: Anna Randhawa M.D. on 10/13/2016 at 12:29 View: Portable, 1 view Interpretation / Wet Read by: Interpret - Radiologist Re-Eval/Medical Decision Med Decision/Clinical Course This is a 50-year-old male who has a history of severe hypertension who presents severely hypertensive with a complaint of chest pressure. The patient clinically appears well and is in no visible distress. He has no findings of overt heart failure. The severely hypertensive on initial arrival. His EKG revealed no acute ischemic changes. Patient reports pink compliant with his medication. (Diltiazem plus lisinopril) Patient's had no neurologic symptoms like he had previously. He denies headache. Denies hematuria. Labs were obtained and did ultimately return normal. The patient was extraordinarily picky about options for management, I initially recommended nitroglycerin to see if it helped with his chest discomfort and resolve the hypertension-patient declined this indicated to cause a headache. I then ordered metoprolol patient has a heart rate in the 80s, severely hypertensive and wanted to avoid anything that would cause drowsiness. he has had recent imaging demonstrating no findings of a dissection (CT in July) I then learned the patient decided he felt better and did not need to be here, told the nurse this took out his IV and simply left. His labs returned normal. I did not get to discuss matters with him. He apparently told the nurse that he did not feel that he needed any medications, but somewhat given him prescription metoprolol in the past that he did not want to fill. I never got an opportunity to discuss his concerns, oriented and 5 my concerns further with him. I was however able to contact office of his PCP to try and facilitate follow-up given his high risk presentation. Source of Hx: Old records Time of Eval: 13:30 Re-Evaluation/Progress Note: Patient left AMA. Consultation : Call Returned at: 13:34 Note: Discussed patient's visit with MA for Melonie. Will encourage followup for BP management. Differential Diagnosis: Positive: Chest pain, acute Discharge & Departure Departure Notes Elopement from the ED Primary Impression: Chest pain Chest pain type: unspecified Qualified Code: R07.9 - Chest pain, unspecified Additional Impression: Hypertensive emergency Disposition: AGAINST MEDICAL ADVICE (Patient eloped - unable to discuss risks/ benefits) Referrals: Delores Wilhelm PA-C Attestation Portions of this note were transcribed by Will Aguero. I, Dr. Cristobal personally performed the history, physical exam and medical decision-making; I reviewed and confirmed the accuracy of the information in the transcribed note. Signed by: Will Aguero 10/13/16, [id number] copies to: Delores Wilhelm PA-C, Matthew F MD Oct 13, 2016 12:18 WILL AGUERO Oct 13, 2016 12:42
[2016-10-13 12:19] VITALS: BP_SYST 175; BP_SYST 198; BP_DIAS 141; BP_DIAS 84; PULSE 67; RESP 14; O2SAT 98
[2016-10-13 12:28] LABS: BASOPHILS % (AUTO) 0.4 % (0-3); EOSINOPHILS % (AUTO) 1.6 % (0-5); MONOCYTES % (AUTO) 11.7 % (4-12); Mean Corpuscular Hemoglobin 31.1 pg (27.0-35.0); Mean Corpuscular Volume 92.8 fL (81-100); NEUTROPHILS % (AUTO) 45.6 % (40-74); Platelet Count 266 bil/L (150-400)
[2016-10-13 12:30] VITALS: BP 179/119; PULSE 67; RESP 1; O2SAT 97
--- NOTE | 2016-10-13 12:31 | DRSVH ---
PROCEDURE: X-RAY CHEST ONE VIEW, PORTABLE ([id number]) INDICATIONS: cp TECHNIQUE: One view of the chest was acquired. COMPARISON: [facility], CR, XR CHEST 1VW (PORTABLE), 07/30/2016, 19:08. FINDINGS: Surgical changes and devices: Left shoulder arthroplasty is partially visualized. Lungs and pleura: No pleural effusions or pneumothorax. Lungs are clear. Mediastinum: Mediastinal contours appear normal. Heart size is normal. Bones and chest wall: No suspicious bony lesions. Overlying soft tissues appear unremarkable. IMPRESSION: No acute pulmonary process. Dictated by: Anna Randhawa M.D. on 10/13/2016 at 12:29 Approved by: Anna Randhawa M.D. on 10/13/2016 at 12:29
[2016-10-13] MEDS ORDERED: MeTOProlol 1 mg/mL 5 mL Inj IVPUSH PRN (12:45)
[2016-10-13 12:47] LABS: TROPONIN T 0.01 ug/L (0.0-0.011)
[2016-10-13 12:58] LABS: Magnesium 2.1 mg/dL (1.6-2.6)
[2016-10-13 13:00] VITALS: BP 151/113; PULSE 64; RESP 12; O2SAT 95
[2016-10-13 13:52] VITALS: BP 151/113; PULSE 64; RESP 12; O2SAT 95
== END 2016-10-13 13:40 | disposition left against medical advice (07) ==
LOC: SED 12:04
DX: R07.9 Chest pain, unspecified (principal); I16.1 Hypertensive emergency; F17.210 Nicotine dependence, cigarettes, uncomplicated; F12.10 Cannabis abuse, uncomplicated; Z79.82 Long term (current) use of aspirin